=== PATIENT | female | born 1990 | race African-American/Black ===

== ENCOUNTER 2025-06-09 17:35 | Emergency (ER) | payer OTHER ==
[~2025-06-09] VITALS: Ht 162.6 cm; Wt 75.0 kg
[2025-06-09 18:16] VITALS: O2SAT 100
[2025-06-09] MEDS: LIDOCAINE 5% PATCH TOP SCH (20:16)
[2025-06-09] MEDS: KETOROLAC 15MG/ML VIAL IM ONE (20:16)
[2025-06-09] MEDS ORDERED: IBUP-2028 MT (21:32)
[2025-06-09] MEDS ORDERED: LIDO700A30 TP (21:32)
[2025-06-09] MEDS ORDERED: CYCL5TAB3 MT (21:45)
[2025-06-09 22:17] VITALS: BP 156/119; PULSE 77; RESP 15; TEMP 36.4; O2SAT 100
== END 2025-06-09 22:36 | disposition home or self-care (01) ==
LOC: ER 17:35
DX: M75.42 Impingement syndrome of left shoulder (principal); Z79.899 Other long term (current) drug therapy; V43.52XA Car driver injured in collision with other type car in traffic accident, initial encounter; Y93.89 Activity, other specified; Y92.410 Unspecified street and highway as the place of occurrence of the external cause; Y99.8 Other external cause status
CPT/HCPCS: 81025; 73030; 72125; 96372; 99285; J1885; Z7610